=== PATIENT | female | born 1995 | race Caucasian/White ===

== ENCOUNTER 2024-06-22 13:54 | Emergency (ER) | payer BC ==
[2024-06-22 14:58] LABS: Absolute Eosinophils 0.1 K/uL (0-0.5); Absolute Lymphocytes (CBC) 1.1 K/uL (0.7-4.9); Absolute Monocytes 0.6 K/uL (0.1-1.3); Absolute Neutrophil 6.1 K/uL (1.8-8.0); Basophils % 0.3 % (0-1.3); Hemoglobin 11.6 g/dL (12.0-15.0); Lymphocytes % 13.8 % (15.3-44.8); MCH 28.5 pg (27.0-35.0); MCHC 34.1 g/dL (32.0-36.0); MCV 83.6 fL (80-100); MPV 8.9 fL (7.6-11.3); Monocytes % 7.3 % (3.3-12.3); Neutrophils % 77.6 % (41.7-73.7); Nucleated Red Blood Cells % 0.1 % (0-0); Platelets 218 thou/uL (152-406); RBC Red Blood Cell Count 4.07 M/uL (3.86-4.86)
[2024-06-22 15:18] LABS: ALT/SGPT 16 U/L (13-56); AST/SGOT 13 U/L (15-37); Albumin 2.9 g/dL (3.4-5.0); Albumin/Globulin Ratio 0.7 (1.1-1.8); Alkaline Phosphatase 38 U/L (45-117); Anion Gap 11.7 mEq/L (5.0-15.0); BUN Blood Urea Nitrogen 10 mg/dL (7-18); Bicarbonate 22 mEq/L (21-32); Bilirubin Total 0.2 mg/dL (0.2-1.0); Globulin 4.1 g/dL (2.3-3.5); Glomerular Filtration Rate 125 ml/min (=/>90); Glucose Level 104 mg/dL (74-106); Magnesium 1.8 mg/dL (1.6-2.4); Potassium 3.7 mEq/L (3.5-5.1); Sodium Level 134 mEq/L (136-145)
--- NOTE | 2024-06-22 15:57 | RAD REPORT ---
EXAM: CT Head Brain Wo Cont HISTORY: SYNCOPE COMPARISON: None TECHNIQUE: Multiple contiguous axial images were obtained for a CT of the brain without contrast. Sag ittal and coronal reformats were performed. One or more of the following dose reduction techniques were used: Automated exposure control, adjus tment of the mA and kV according to patient size, and iterative reconstruction. Unless otherwise specified, incidental findings do not require dedicated imaging follow-up. FINDINGS: No evidence of hydrocephalus, intracranial hemorrhage, or extra-axial fluid collection. The brain is normal in morphology. The calvarium is intact. The visualized paranasal sinuses and mastoid air cells are essentially clear . IMPRESSION: No evidence of acute intracranial abnormality.
[2024-06-22 16:16] LABS: Bilirubin Direct < 0.2 mg/dL (0-0.2)
[2024-06-22 16:17] LABS: Troponin High Sensitivity < 3.0 pg/mL (<58.9)
[2024-06-22 17:11] LABS: Specific Gravity < 1.005 (1.005-1.030); Sqamous Epithelial <5 /HPF (None Seen); Transitional Epithelial <5 /HPF (None Seen); Urine Bacteria <20 /HPF (<20); Urine Bilirubin NEGATIVE (Negative); Urine Blood Negative (Negative); Urine Clarity Turbid (Clear); Urine Color Colorless (Yellow); Urine Culture Reflex Order NOT NEEDED; Urine Glucose NEGATIVE (Negative); Urine Ketones NEGATIVE (Negative); Urine Microscopic Reflex YN ORDER UMIC; Urine Nitrite NEGATIVE (Negative); Urine Protein NEGATIVE (Negative); Urine RBC <5 /HPF (None Seen); Urine Urobilinogen Normal (Normal); Urine WBC <5 /HPF (<5)
--- NOTE | 2024-06-22 17:15 | ER ---
Nurse's Notes [facility] [place], [place] Name: Bessy Interiano Age: 28 yrs Sex: Female : 1995 Arrival Date: 06/22/2024 Time: 13:54 Bed 18 Private MD: Diagnosis: Syncope Presentation: 06/22 14:13 Chief complaint: Patient states: SYNCOPAL EPISODE TODAY WHILE AT [facility]. STATES WAS db DRINKING DECAF COFFEE FELT "LIGHT HEADED THEN WOKE UP ON THE GROUND IN MY OWN VOMIT". WITNESSED BY FRIEND STATES WAS ON THE GROUND FOR 45 SECONDS. REPORTS IS 33 WEEKS WITH CARE. FEELS BABY MOVING DENIES PAIN. STATES DID EAT PRIOR TO INCIDENT. HAS BEEN FEEL "OFF" ALL DAY. Coronavirus screen: Client denies travel out of the [place] in the last 14 days. At this time, the client does not indicate any symptoms associated with coronavirus-19. Ebola Screen: Patient negative for fever greater than or equal to 101.5 degrees Fahrenheit, and additional compatible Ebola Virus Disease symptoms Patient denies exposure to infectious person. Patient denies travel to an Ebola-affected area in the 21 days before illness onset. No symptoms or risks identified at this time. Initial Sepsis Screen: Does the patient meet any 2 criteria? No. Patient's initial sepsis screen is negative. Does the patient have a suspected source of infection? No. Patient's initial sepsis screen is negative. Risk Assessment: Do you want to hurt yourself or someone else? Patient reports no desire to harm self or others. Onset of symptoms was June 22, 2024. 14:13 Method Of Arrival: Ambulatory db 14:13 Acuity: KAELA 3 db Triage Assessment: 14:16 General: Appears in no apparent distress. comfortable, Behavior is calm, cooperative. db Pain: Denies pain. Neuro: Level of Consciousness is awake, alert, obeys commands, Oriented to person, place, time, situation. Respiratory: Airway is patent Respiratory effort is even, unlabored, Respiratory pattern is regular, symmetrical. GI: Reports nausea, vomiting. 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 - Infectious Disease History:: Denies. - Social history:: Smoking status: Patient denies any tobacco usage or history of. Screenin:20 [facility] [place] ED Fall Risk Assessment (Adult) History of falling in the last 3 months, me1 including since admission No falls in past 3 months (0 pts) Confusion or Disorientation No (0 pts) Intoxicated or Sedated No (0 pts) Impaired Gait No (0 pts) Mobility Assist Device Used No (0 pt) Altered Elimination No (0 pt) Score/Fall Risk Level 0 - 2 = Low Risk Maintained a safe environment, Provided non-skid footwear, Hourly rounding (assess needs \\T\\ fall precautionary measures) done. Abuse screen: Denies threats or abuse. Nutritional screening: No deficits noted. Tuberculosis screening: No symptoms or risk factors identified. Assessment: 14:20 General: Appears in no apparent distress. comfortable, well groomed, well developed, me1 well nourished, Behavior is calm, cooperative, appropriate for age, Reports SYNCOPAL EPISODE TODAY WHILE AT [facility]. STATES WAS DRINKING DECAF COFFEE FELT "LIGHT HEADED THEN WOKE UP ON THE GROUND IN MY OWN VOMIT". WITNESSED BY FRIEND STATES WAS ON THE GROUND FOR 45 SECONDS. REPORTS IS 33 WEEKS WITH CARE. FEELS BABY MOVING DENIES PAIN. STATES DID EAT PRIOR TO INCIDENT. HAS BEEN FEEL "OFF" ALL DAY. Pain: Denies pain. Neuro: Level of Consciousness is awake, alert, obeys commands, Oriented to person, place, time, situation, Appropriate for age Reports a syncopal episode. Cardiovascular: Patient's skin is warm and dry. Respiratory: Airway is patent Respiratory effort is even, unlabored, Respiratory pattern is regular, symmetrical. GI: Reports vomiting, x1 with syncope. GI: Abdomen is round non-distended. : No signs and/or symptoms were reported regarding the genitourinary system. EENT: No signs and/or symptoms were reported regarding the EENT system. Derm: Skin is intact, is healthy with good turgor, Skin is pink, warm \\T\\ dry. Musculoskeletal: No signs and/or symptoms reported regarding the musculoskeletal system. Vital Signs: 14:13 BP 111 / 79; Pulse 80; Resp 16; Temp 98.2(O); Pulse Ox 100% ; Weight 81.65 kg; Height 5 db ft. 9 in. ; 16:01 BP 104 / 70 Sitting; Pulse 64; me1 16:01 BP 107 / 73 Standing; Pulse 67; me1 16:01 BP 104 / 70 Supine; Pulse 59; Resp 16; Pulse Ox 100% on R/A; me1 17:00 BP 111 / 79; Pulse 76; Resp 16; Pulse Ox 100% ; me1 14:13 Body Mass Index 26.58 (81.65 kg, 175.26 cm) db Vitals: 14:38 Heart Tones 136 bpm. me1 ED Course: 13:58 Patient arrived in ED. mr 14:07 Nadege Bagley, RN is Primary Nurse. me1 14:15 Jair Main PA is PHCP. cp 14:15 Michael Everett MD is Attending Physician. cp 14:15 Triage completed. db 14:16 Arm band placed on Patient placed in an exam room. db 14:20 Patient has correct armband on for positive identification. Bed in low position. Call [facility] [place], [place] light in reach. Side rails up X 1. Provided Education on: POC. Verbalized understanding.. Client placed on continuous cardiac and pulse oximetry monitoring. NIBP monitoring applied. Pulse ox on. NIBP on. 14:20 No provider procedures requiring assistance completed. me1 14:38 EKG done, by ED staff, reviewed by Jair ALAMO. me1 14:53 Basic Metabolic Panel Sent. me1 14:53 CBC with Diff Sent. me1 14:53 Magnesium Sent. me1 14:53 Troponin HS Sent. me1 14:53 Initial lab(s) drawn, by ri, sent to lab. Inserted saline lock: 22 gauge in left me1 antecubital area, using aseptic technique. 15:20 CT Head Brain wo Cont In Process Unspecified. EDMS 16:51 Urine collected: clean catch specimen, clear. me1 17:01 Urinalysis w/ reflexes Sent. me1 17:23 IV discontinued, intact, bleeding controlled, No redness/swelling at site. Pressure me1 dressing applied. Administered Medications: No medications were administered Medication: 14:20 VIS not applicable for this client. me1 Outcome: 17:15 Discharge ordered by . cp 17:23 Discharged to home ambulatory, with significant other, me1 17:23 Condition: stable 17:23 Discharge instructions given to patient, significant other, Instructed on discharge instructions, follow up and referral plans. Demonstrated understanding of instructions, follow-up care, 17:24 Patient left the ED. me1 Signatures: Dispatcher [employer] EDWA Daisy Wang, Reg Reg mr Jair Main, CALLY PA cp Sherri Cowart RN RN db Nadege Bagley RN RN me1 Corrections: (The following items were deleted from the chart) 16:18 16:01 BP 104 / 70 Supine; Pulse 59bpm; me1 me1 16:58 14:13 Chief complaint: Patient states: SYNCOPAL EPISODE TODAY WHILE AT [facility]. me1 STATES WAS DRINKING DECAF COFFEE FELT "LIGHT HEADED THEN WOKE UP ON THE GROUND IN MY OWN VOMIT". WITNESSED BY FRIEND STATES WAS ON THE GROUND FOR 45 SECONDS. REPORTS IS 33 WEEKS WITH CARE. FEELS BABY MOVING DENIES PAIN. STATES DID EAT PRIOR TO INCIDENT. HAS BEEN FEEL "OFF" ALL DAY db
--- NOTE | 2024-06-22 17:16 | EDPHYS ---
Physician Documentation [facility] Name: Bessy Interiano Age: 28 yrs Sex: Female : 1995 Arrival Date: 06/22/2024 Time: 13:54 Bed 18 Private MD: ED Physician Michael Everett HPI: 06/22 14:25 This 28 yrs old Female presents to ER via Ambulatory with complaints of 33 wks cp , Passed Out Prior To Arrival, Vomiting. 14:25 The patient has experienced syncope, lost consciousness. Onset: The symptoms/episode cp began/occurred just prior to arrival. Duration: This was a single episode, that lasted an unknown period of time. 14:25 Context: the episode(s) was witnessed, by a friend, occurred at a store, while drinking cp decaffeinated coffee and sitting with friend, Just prior to the episode the patient experienced dizziness, lightheadedness, nausea, felt hot. Associated injury: The patient did not suffer any apparent associated injury. Associated signs and symptoms: Pertinent positives: currently approximately 33 weeks with first , 1 episode of vomiting, Pertinent negatives: abdominal pain, vaginal bleeding. 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 - Infectious Disease History:: Denies. - Social history:: Smoking status: Patient denies any tobacco usage or history of. ROS: 14:30 Constitutional: Negative for body aches, chills, fever, poor PO intake, cp 14:30 Eyes: Negative for injury, pain, redness, and discharge, cp 14:30 Neck: Negative for pain with movement, pain at rest, stiffness, 14:30 Cardiovascular: Negative for chest pain, palpitations, 14:30 Respiratory: Negative for cough, shortness of breath, wheezing, 14:30 Abdomen/GI: Positive for vomiting, Negative for abdominal pain, diarrhea, constipation, 14:30 : Negative for urinary symptoms, vaginal bleeding, 14:30 Neuro: Positive for dizziness, syncope, Negative for altered mental status, speech changes, weakness, 14:30 All other systems are negative, Exam: 14:33 Constitutional: The patient appears in no acute distress, alert, awake, cp non-diaphoretic, non-toxic, well developed, well nourished, 14:33 Head/Face: Normocephalic, atraumatic. cp 14:33 Eyes: Periorbital structures: appear normal, Pupils: equal, round, and reactive to light and accomodation, Extraocular movements: intact throughout, Conjunctiva: normal, no exudate, no injection, Sclera: no appreciated abnormality, Lids and lashes: appear normal, bilaterally, 14:33 ENT: External ear(s): are unremarkable, Nose: is normal, Mouth: Lips: moist, Oral mucosa: moist, Posterior pharynx: Airway: no evidence of obstruction, patent, 14:33 Neck: C-spine: vertebral tenderness, is not appreciated, crepitus, is not appreciated, ROM/movement: pain, is not appreciated, limited range of motion, is not appreciated, 14:33 Chest/axilla: Inspection: normal, 14:33 Cardiovascular: Rate: normal, Rhythm: regular, Edema: is not appreciated, JVD: is not appreciated, 14:33 Respiratory: the patient does not display signs of respiratory distress, Respirations: normal, no use of accessory muscles, no retractions, labored breathing, is not present, Breath sounds: are clear throughout, no decreased breath sounds, no stridor, no wheezing, 14:33 Abdomen/GI: Inspection: gravid appearance, is noted, Palpation: abdomen is soft and non-tender, in all quadrants, 14:33 Back: pain, is absent, ROM is normal, 14:33 Neuro: Orientation: to person, place \T\ time. Mentation: is normal, Cerebellar function: is grossly normal, Motor: moves all fours, strength is normal, Sensation: is normal, 14:43 ECG was reviewed by the Attending Physician. cp Vital Signs: 14:13 BP 111 / 79; Pulse 80; Resp 16; Temp 98.2(O); Pulse Ox 100% ; Weight 81.65 kg; Height 5 db ft. 9 in. ; 16:01 BP 104 / 70 Sitting; Pulse 64; me1 16:01 BP 107 / 73 Standing; Pulse 67; me1 16:01 BP 104 / 70 Supine; Pulse 59; Resp 16; Pulse Ox 100% on R/A; me1 17:00 BP 111 / 79; Pulse 76; Resp 16; Pulse Ox 100% ; me1 14:13 Body Mass Index 26.58 (81.65 kg, 175.26 cm) db MDM: 14:15 Medical Screening Exam initiated cp 17:15 Data reviewed: vital signs, nurses notes, lab test result(s), radiologic studies, CT cp scan, and as a result, I will discharge patient. 17:15 Differential Diagnosis: cardiac arrhythmia, cerebrovascular accident, GI bleed, cp , pseudo seizure, seizure, sepsis, transient ischemic attack, vasovagal episode. Consideration of Admission/Observation Escalation of care including admission/observation considered. Independent interpretation of the following test(s) in the Emergency Department EKG: See my EKG interpretation above. Counseling: I had a detailed discussion with the patient and/or guardian regarding the historical points, exam findings, and any diagnostic results supporting the discharge/admit diagnosis, lab results, radiology results, the need for outpatient follow up, an OB/Gyne specialist, to return to the emergency department if symptoms worsen or persist or if there are any questions or concerns that arise at home. 06/22 14:45 Order name: Basic Metabolic Panel; Complete Time: 16:22 06/22 16:22 Interpretation: Normal except: NA 134. cp 06/22 14:45 Order name: CBC with Diff; Complete Time: 16:01 cp 06/22 16:01 Interpretation: Normal except: HGB 11.6; HCT 34.0; LORNE% 77.6; LYM% 13.8. cp 06/22 14:45 Order name: LFT's; Complete Time: 16:22 cp 06/22 16:22 Interpretation: Normal except: AST 13; ALK 38; IBILI, CALC 0.0; ALB 2.9; GLOB 4.1; A/G cp 0.7. 06/22 14:45 Order name: Magnesium; Complete Time: 16:22 cp 06/22 14:45 Order name: Troponin HS; Complete Time: 16:22 cp 06/22 16:23 Order name: Urinalysis w/ reflexes; Complete Time: 17:13 cp 06/22 17:13 Interpretation: Reviewed. 06/22 14:45 Order name: CT Head Brain wo Cont; Complete Time: 16:01 cp 06/22 14:45 Order name: EKG; Complete Time: 14:46 cp 06/22 14:23 Order name: EKG - Nurse/Tech; Complete Time: 14:38 cp 06/22 14:23 Order name: FHT's; Complete Time: 14:38 cp 06/22 14:23 Order name: Orthostatics; Complete Time: 16:01 cp 06/22 14:45 Order name: Cardiac monitoring; Complete Time: 14:55 cp 06/22 14:45 Order name: IV Saline Lock; Complete Time: 14:53 cp 06/22 14:45 Order name: Labs collected and sent; Complete Time: 14:53 cp 06/22 14:45 Order name: O2 Per Protocol; Complete Time: 14:53 cp 06/22 14:45 Order name: O2 Sat Monitoring; Complete Time: 14:53 cp EC:43 Rate is 71 beats/min. Rhythm is regular. NC interval is normal. QRS interval is normal. cp QT interval is normal. T waves are Inverted in lead aVR. Interpreted by me. Reviewed by me. Administered Medications: No medications were administered Disposition: 18:57 Co-signature as Attending Physician, Michael Everett MD I reviewed the patient's care rn provided by the Advanced Practice Provider and agree with the diagnosis and treatment plan. Disposition Summary: 06/22/24 17:15 Discharge Ordered Notes: Location: Home cp Problem: new cp Symptoms: have improved cp Condition: Stable cp Diagnosis - Syncope cp Followup: cp - With: Private Physician - When: 2 - 3 days - Reason: Recheck today's complaints Discharge Instructions: - Discharge Summary Sheet cp - Syncope cp Forms: - Medication Reconciliation Form cp - Antibiotic Education cp - Prescription Opioid Use cp - Patient Portal Instructions cp - Leadership Thank You Letter cp Signatures: Dispatcher [employer] EDMS Michael Everett MD MD rn Page, Corey, PA PA cp Sherri Cowart RN RN db Corrections: (The following items were deleted from the chart) 14:46 14:46 Chest Single View+[email or web address] ordered. EDMS EDMS
[2024-06-24 16:10] VITALS: BP 111/79; TEMP 98.2; O2SAT 100
--- NOTE | 2024-06-26 12:10 | EKG ---
Test Date: 2024-06-22 Test Time: 14:35:28 Front End Web Developer: MEASUREMENT RESULTS: Intervals: Rate: 71 [place]: 172 QRSD: 72 QT: 386 QTc: 419 [place]: P: 63 [place]: 172 QRS: 63 T: 50 INTERPRETIVE STATEMENTS: Normal sinus rhythm Normal ECG No previous ECG available for comparison Electronically Signed On 06-26-24 12:08:02 MASKING MACHINE OPERATOR by Mario Garza
== END 2024-06-22 17:24 | disposition home or self-care (01) ==
LOC: ER 13:54
DX: O26.893 Other specified pregnancy related conditions, third trimester (principal); R55 Syncope and collapse; Z3A.33 33 weeks gestation of pregnancy
CPT/HCPCS: 36415; 70450; 80048; 80076; 81001; 83735; 84484; 85025; 93005; 99284